=== PATIENT | female | born 1960 | race Caucasian/White ===

== ENCOUNTER 2024-12-06 13:26 | Emergency (ER) | payer BC ==
[~2024-12-06] VITALS: Ht 170.2 cm; Wt 92.1 kg
--- NOTE | 2024-12-06 13:42 | ERN ---
ED Note History of Present Illness Stated Complaint: MULTIPLE COMPLAINTS Chief Complaint: Other Problems Time Seen by MD: 13:38 Dictation: PATIENT IS A 64-YEAR-OLD FEMALE HERE COMING IN FROM A LOCAL URGENT CARE CENTER WITH MULTIPLE COMPLAINTS. SHE STATES THE ORIGINALLY SHE HAD A SAME LEVEL FALL BACKWARDS AND HIT HER HEAD TWO WEEKS AGO WAS SEEN AT [facility] IN [place] AND HAD A WORKUP AND WAS TOLD EVERYTHING WAS FINE. SHE LEFT POSTERIOR RIB PAIN WITH THE X-RAYS THAT WERE DONE AND THOSE WERE FINE TWO. SHE HAS ALREADY BEEN BACK TO THEM ONCE AND IT WAS MEDICALLY CLEARED. SHE WENT IN TODAY TO THE URGENT CARE BECAUSE SHE WAS HAVING WHAT SHE THOUGHT IS SWELLING OF HER NECK CONTINUED CHEST PAIN TO THE BACK AND STATES MY STOMACH AND GI SYSTEM ISN'T WORKING THE WAY IT SHOULD. SHE STATES SHE ATE THIS MORNING AND FELT LIKE SHE HAD TROUBLE GETTING THE FOOD DOWN. SHE SAYS SHE HAS HAD THIS TROUBLE IN THE PAST PRIOR TO THE FALL AND WHEN SHE WAS BACK HOME AT THE STATE WHERE [place]ID[place] DURING THE [place], THEY HAD NEVER BEEN ABLE FIND AN ETIOLOGY FOR THOSE PROBLEMS. FINALLY HER BLOOD PRESSURE IS 196/98 IN TRIAGE SHE STATES SHE TAKES TWO DIFFERENT MEDICATIONS HOWEVER CAN NOT REMEMBER IF THEY WERE TAKEN THIS MORNING. SHE STATES THEY DID NOT TELL HER ANYTHING AT THE URGENT CARE. Allergies: Coded Allergies: adhesive tape (Unverified Allergy, Unknown, 12/06/24) duloxetine (Unverified Allergy, Unknown, 12/06/24) gabapentin (Unverified Allergy, Unknown, 12/06/24) latex (Unverified Allergy, Unknown, 12/06/24) perflutren (Unverified Allergy, Unknown, 12/06/24) Home Meds Active Scripts Acetaminophen with Codeine (Acetaminophen-Cod #3 Tablet) 300 Mg-30 Mg Tablet, 1 TAB PO Q4H PRN for Moderate to severe pain, #15 TAB 0 Refills Prov:JESUS YIN PATTERN DESIGNER 12/06/24 Past Medical History History: Not Applicable RN Note Reviewed/Agreed w/PFSH: Yes Review of System Dictation CONSTITUTIONAL: NEGATIVE EXCEPT FOR HPI HEAD/FACE: NEGATIVE EXCEPT FOR HPI EENT: NEGATIVE EXCEPT FOR HPI RESPIRATORY: NEGATIVE EXCEPT FOR HPI GASTROINTESTINAL/ABDOMINAL: NEGATIVE EXCEPT FOR HPI GI ISSUES GENITOURINARY: NEGATIVE EXCEPT FOR HPI MUSCULOSKELETAL: NEGATIVE EXCEPT FOR HPI NECK SWELLING INTEGUMENTARY: NEGATIVE EXCEPT FOR HPI NEUROLOGICAL/PSYCH: NEGATIVE EXCEPT FOR HPI HEMATOLOGIC/LYMPHATIC: NEGATIVE EXCEPT FOR HPI ALL SYSTEMS NEGATIVE, EXCEPT NOTED ABOVE. 13 POINT REVIEW OF SYSTEMS ASSESSED AND ALL NEGATIVE EXCEPT FOR ABOVE. Initial Vital Sign VS Vital Signs Date Time Temp Pulse Resp B/P (MAP) Pulse Ox O2 Delivery O2 Flow Rate FiO2 12/06/24 13:32 97.0 82 16 196/98 Room Air 12/06/24 13:52 98 0 21 Physical Exam Dictation VITAL SIGNS REVIEWED GENERAL APPEARANCE: ALERT, ORIENTED X 3, NO ACUTE DISTRESS, WELL DEVELOPED, NOURISHED. HEAD AND FACE: NON-TRAUMATIC. EYES: PERRL, PINK CONJUNCTIVAS, EYELID NO TRAUMA, ANTERIOR CHAMBER WITH ARCUS SENILIS. EARS: PINNAS INTACT AND NO SIGNS OF TRAUMA OR ERYTHEMA EAR CANALS CLEAR AND NO DISCHARGE TM NO ERYTHEMA NOSE: NO DISCHARGE, NO BLEEDING. OROPHARYNX: MOUTH NORMAL, TONGUE PINK, PHARYNX CLEAR,NO ERYTHEMA, TONSILS NO EXUDATES, NO ABSCESSES NOTED, MUCOUS MEMBRANE MOIST NECK: SUPPLE, NON-TENDER, NO THYROMEGALY, NO MASSES, NO JVD, NO BRUITS BREAST:DEFERRED CHEST:NO TENDERNESS, NO CREPITUS, NO PARADOXICAL MOVEMENT, NO RETRACTIONS LUNGS:CLEAR, WELL-VENTILATED, SYMMETRIC, NO RALES, NO WHEEZING, NO RHONCHI, NO STRIDOR, GOOD BREATH SOUNDS BILATERALLY HEART: REGULAR RATE, REGULAR RHYTHM, NO MURMUR, NO GALLOPS VASCULAR: NO PERIPHERAL EDEMA, ABDOMEN: SOFT, POSITIVE BOWEL SOUNDS, NONDISTENDED, NO GUARDING, NONTENDER, NO REBOUND, NO MASSES NO HEPATOMEGALY, NO SPLENOMEGALY, NO FRAIRE'S SIGN, NO HERNIAS. NO FOCAL TENDER RECTAL: DEFERRED GENITAL: DEFERRED NEUROLOGICAL: NORMAL SPEECH, MOTOR FUNCTION INTACT, SENSORY FUNCTION INTACT MUSCULOSKELETAL: NECK NONTENDER, FULL RANGE OF MOTION, BACK NONTENDER, FULL RANGE OF MOTION, EXTREMITIES: NONTENDER, FULL RANGE OF MOTION SKIN: COLOR PINK, DRY, NO TURGOR, NO RASH, NO LACERATIONS, NO ABRASIONS, NO CONTUSIONS. LYMPHATIC: DEFERRED Results (Laboratory/Radiology) Laboratory/Radiology Laboratory Tests Test 12/06/24 14:00 White Blood Count 6.4 K/uL (4.8-10.8) Red Blood Count 4.29 MIL/uL (4.00-5.50) Hemoglobin 13.3 g/dL (12.0-16.0) Hematocrit 40.4 % (36-48) Mean Corpuscular Volume 94.2 fL (79-99) Mean Corpuscular Hemoglobin 31.0 pg (27.0-33.0) Mean Corpuscular Hemoglobin Concent 32.9 g/dL (32.0-36.0) Red Cell Distribution Width 13.0 % (11.0-15.5) Platelet Count 203 K/uL (130-400) Mean Platelet Volume 11.0 fL (7.5-10.5) H Immature Granulocyte % (Auto) 0.6 % (0-1) Neutrophils (%) (Auto) 62.1 % (40.0-77.0) Lymphocytes (%) (Auto) 23.0 % (21.0-51.0) Monocytes (%) (Auto) 9.9 % (3.0-13.0) Eosinophils (%) (Auto) 3.9 % (0.0-8.0) Basophils (%) (Auto) 0.5 % (0.0-5.0) Neutrophils # (Auto) 3.9 K/uL (1.8-7.7) Lymphocytes # (Auto) 1.5 K/uL (1.0-4.8) Monocytes # (Auto) 0.6 K/uL (0.1-1.0) Eosinophils # (Auto) 0.25 K/uL (0.00-0.70) Basophils # (Auto) 0.03 K/uL (0.00-0.20) Absolute Immature Granulocyte (auto 0.04 K/uL (0-1) Nucleated Red Blood Cells 0.0 % (0.0-0.19) Sodium Level 139 mmol/L (136-145) Potassium Level 4.1 mmol/L (3.5-5.1) Chloride Level 103 mmol/L (101-111) Carbon Dioxide Level 29 mmol/L (21-32) Blood Urea Nitrogen 15 mg/dL (7-18) Creatinine 0.8 mg/dL (0.5-1.0) Glomerular Filtration Rate Calc 83 mL/min (>90) Random Glucose 121 mg/dL (70-105) H Total Calcium 8.6 mg/dL (8.5-10.1) Total Bilirubin 0.6 mg/dL (0.2-1.0) Aspartate Amino Transf (AST/SGOT) 18 U/L (10-37) Alanine Aminotransferase (ALT/SGPT) 23 U/L (12-78) Alkaline Phosphatase 114 U/L (50-136) Troponin I High Sensitivity 6 ng/L (4-50) B-Type Natriuretic Peptide 103 pg/mL (0-100) H Total Protein 6.9 g/dL (6.0-8.3) Albumin 3.5 g/dL (3.5-5.0) Lipase 63 U/L (16-77) MINH WITH CONTRAST INDICATION: Bilateral proximal neck swelling after fall 2 weeks ago TECHNIQUE: 3D helical CT acquisition images were obtained from the level of the skull base to the thoracic inlet with 100 mL of Omnipaque 350 IV contrast and coronal and sagittal reformats. CT was performed with one or more of the following dose reduction techniques: Automated exposure control, adjustment of the mA and/or kV according to patient size, or use of iterative reconstruction technique. COMPARISON: None FINDINGS: Examination provided for interpretation at 8:20 PM on 12/06/2024. The visualized portions of the brain, skull base, orbits, and paranasal sinuses appear normal. Streak artifact from maxillary sinus and mandibular hardware. The visualized nasopharynx and nasal cavity appear normal. The oral cavity, oropharynx, and hypopharynx appear normal. The cervical esophagus and visualized portion of the thoracic esophagus appear normal. The larynx and visualized trachea appear normal. The extramucosal spaces of the neck appear normal. The parotid and submandibular glands appear normal. The thyroid gland appears normal. No cervical lymphadenopathy noted. The visualized osseous structures, vasculature, and soft tissues appear normal. The upper mediastinum and lung apices appear normal. IMPRESSION: No evidence for fracture or any other acute soft tissue neck abnormality. Labs Reviewed?: Yes EKG Comment: EKG SINUS RHYTHM/HEART RATE 69/LEFT ATRIAL ENLARGEMENT/NO ECTOPY ED Course ED Course Orders Procedure Category Date Status Time Clonidine Hcl 0.1 Mg PHA 12/06/24 Complete Tablet (Catapres 0. 14:00 Cbc With Differential LAB 12/06/24 Complete 13:38 Comprehensive LAB 12/06/24 Complete Metabolic Panel 13:38 Troponin I High LAB 12/06/24 Complete Sensitivity 13:38 12 Lead Ekg Tracing- EKG 12/06/24 Complete Technical 13:38 Chest 1vw RAD 12/06/24 Resulted 13:38 Lipase LAB 12/06/24 Complete 13:38 B-Type Natriuretic LAB 12/06/24 Complete Peptide 14:22 Ketorolac 60mg/2ml PHA 12/06/24 Complete (Toradol 60mg/2ml) 15:30 Ct Neck Soft Tiss CT 12/06/24 Resulted W/Contrast 16:42 Iohexol (Omnipaque) PHA 12/06/24 Complete 18:00 Current Medications Medications (Trade) Dose Ordered Sig/Omer Route PRN Reason Start Time Stop Time Status Last Admin Dose Admin Clonidine HCl (CATApres 0.1 mg TAB) 0.1 mg ONCE ONCE PO 12/06/24 14:00 12/06/24 14:01 DC 12/06/24 16:58 Iohexol (Omnipaque) 75 ml STK-MED ONCE IV 12/06/24 18:00 12/06/24 18:01 DC Ketorolac Tromethamine (toRADol 60MG/ 2ML) 60 mg ONCE ONCE IM 12/06/24 15:30 12/06/24 15:31 DC 12/06/24 15:49 Vital Signs Date Time Temp Pulse Resp B/P (MAP) Pulse Ox O2 Delivery O2 Flow Rate FiO2 12/06/24 19:34 97.0 75 16 142/81 98 Room Air* 0 12/06/24 17:16 97.0 69 18 173/94 96 Room Air* 0 12/06/24 16:58 69 169/72 12/06/24 15:45 97.0 75 18 156/98 96 Room Air* 0 12/06/24 14:45 97.0 75 18 154/84 96 Room Air* 0 12/06/24 13:52 75 18 169/88 98 Room Air* 0 12/06/24 13:32 97.0 82 16 196/98 Room Air PATIENT: MARGARITA ESCOTO MR#: [id number] : 1960 SEX: F AGE: 64 LOCATION: [facility] ORDER 42 STATUS: REG ER REPORT#: [id number] SERVICE 41 REASON: Bilateral proximal neck swelling status post fall two weeks ago back ORDERING PHYSICIAN: JESUS YIN PATTERN DESIGNER PROCEDURE: NKSOFTI W - CT NECK SOFT TISS W/CONTRAST CT NECK WITH CONTRAST INDICATION: Bilateral proximal neck swelling after fall 2 weeks ago TECHNIQUE: 3D helical CT acquisition images were obtained from the level of the skull base to the thoracic inlet with 100 mL of Omnipaque 350 IV contrast and coronal and sagittal reformats. CT was performed with one or more of the following dose reduction techniques: Automated exposure control, adjustment of the mA and/or kV according to patient size, or use of iterative reconstruction technique. COMPARISON: None FINDINGS: Examination provided for interpretation at 8:20 PM on 12/06/2024. The visualized portions of the brain, skull base, orbits, and paranasal sinuses appear normal. Streak artifact from maxillary sinus and mandibular hardware. The visualized nasopharynx and nasal cavity appear normal. The oral cavity, oropharynx, and hypopharynx appear normal. The cervical esophagus and visualized portion of the thoracic esophagus appear normal. The larynx and visualized trachea appear normal. The extramucosal spaces of the neck appear normal. The parotid and submandibular glands appear normal. The thyroid gland appears normal. No cervical lymphadenopathy noted. The visualized osseous structures, vasculature, and soft tissues appear normal. The upper mediastinum and lung apices appear normal. IMPRESSION: No evidence for fracture or any other acute soft tissue neck abnormality. 2054/patient states pain is 1/10. She is aware that CT, chest x-ray and labs are all negative follow up with her primary doctor to get him a list of the doctors on staff at [facility] Score Response (Comments) Value EKG: Repolarization changes 1 Risk Factors: 1-2 risk factors (+1) 1 Initial Troponin: Normal limit (0) 0 Total 2 Medical Decision Making MDM MDM: Differential diagnosis: Esophageal disruption/tracheal disruption/ pneumonia/bronchitis/AMI/chest wall contusion Rationale: Tests considered and ordered secondary to shared decision making include: EKG/labs/radiology Previous outside records reviewed: Old ER visits. Risk of complication and/or morbidity or mortality of patient management: None Medications-Per medication reconciliation Need for hospitalization: Patient does not meet criteria for hospitalization. No Need for emergency major/minor surgery: No There are no social concerns with this patient. Prescription drug management Tylenol with codeine Prescriptions will include symptomatic care Patient's prior external medical records from other ER visits were reviewed by me as indicated. Prior testing and results from previous visits were reviewed. Prior tests were taken into account with medical decision making and resource utilization, independent historian/historians were used to obtain complete medical history. I independently interpreted the test that were performed, results were reviewed by me and considered findings on radiology if ordered. Medical management and examination interpretation discussions were had by me with other qualified healthcare professionals as indicated for the patient's care. DX & DISP Disposition: Discharge Departure Impression: Primary Impression: Contusion of neck Additional Impressions: Contusion of left chest wall, Fall Condition: Stable Scripts Acetaminophen with Codeine (Acetaminophen-Cod #3 Tablet) 300 Mg-30 Mg Tablet 1 TAB PO Q4H PRN for Moderate to severe pain, #15 TAB 0 Refills Prov: JESUS YIN NP 12/06/24 Additional Instructions: Follow-up with primary care provider in 1 to 2 days. Take medications as directed here in the emergency room. Okay to continue home medications unless otherwise discussed during your visit in the emergency room today. Return to your nearest emergency room if symptoms worsen or if there is no improvement. Call 911 if you need immediate assistance. Take Tylenol or Motrin [id number] as needed and if no contraindications are present. Increase oral hydration. A wound culture or urine culture was ordered here in the emergency room department please follow-up with primary care provider and advise them to get repeat ports from our facility. If you had any Juan Antonio wrap/splints that were applied here, please do not remove them until you see your primary care or specialty. Diet and activity as tolerated, follow up with one of the doctors on the list of primary care physicians in next several days if needed. Time of Disposition: 20:58 I have reviewed the case, and I agree with, Diagnosis and Plan JESUS YIN NP Dec 06, 2024 13:42 PRICILA CONNELL DO Dec 07, 2024 12:11
--- NOTE | 2024-12-06 13:48 | EKG ---
[facility] Test Date: 2024-12-06 Test Time: 13:41:35 Pat Name: MARGARITA ESCOTO Department: ED Room: Gender: F [employer] Clippings: [id number] : 1960 Requested By: JESUS YIN Order Number: [id number] Reading MD: Sol Rosario Measurements Intervals [place] Rate: 69 P: 60 LA: 128 QRS: 24 QRSD: 70 T: 30 QT: 371 QTc: 399 Interpretive Statements Sinus rhythm Probable left atrial enlargement No previous ECG available for comparison Electronically Signed On 12-08-2024 08:39:40 TUB OPERATOR by Sol Rosario Please click the below link to view image of tracing.
[2024-12-06 14:11] LABS: BASOPHILS # (AUTO) 0.03 K/uL (0.00-0.20); BASOPHILS % (AUTO) 0.5 % (0.0-5.0); EOSINOPHILS # (AUTO) 0.25 K/uL (0.00-0.70); EOSINOPHILS % (AUTO) 3.9 % (0.0-8.0); HEMATOCRIT 40.4 % (36-48); IMMATURE GRANULOCYTE ABSOLUTE 0.04 K/uL (0-1); LYMPHOCYTES # (AUTO) 1.5 K/uL (1.0-4.8); MEAN CORPUSCULAR HGB CONC 32.9 g/dL (32.0-36.0); MEAN CORPUSCULAR VOLUME 94.2 fL (79-99); MONOCYTES # (AUTO) 0.6 K/uL (0.1-1.0); MONOCYTES % (AUTO) 9.9 % (3.0-13.0); NEUTROPHILS # (AUTO) 3.9 K/uL (1.8-7.7); NEUTROPHILS % (AUTO) 62.1 % (40.0-77.0); PLATELET COUNT (AUTO) 203 K/uL (130-400); RED BLOOD CELL COUNT(AUTO) 4.29 MIL/uL (4.00-5.50); WHITE BLOOD COUNT (AUTO) 6.4 K/uL (4.8-10.8)
[2024-12-06 14:18] LABS: CREATININE 0.8 mg/dL (0.5-1.0); POTASSIUM 4.1 mmol/L (3.5-5.1)
[2024-12-06 14:23] LABS: ALBUMIN 3.5 g/dL (3.5-5.0); BILIRUBIN,TOTAL 0.6 mg/dL (0.2-1.0); TOTAL PROTEIN, SERUM 6.9 g/dL (6.0-8.3)
--- NOTE | 2024-12-06 15:17 | HMCIMG ---
CHEST 1VW HISTORY: Chest pain COMPARISON: None FINDINGS: A frontal projection of the chest was obtained. No acute pulmonary infiltrates is seen. The heart is borderline enlarged. Prominent interstitial markings are seen. Degenerative changes are seen. No evidence of aortic calcification is seen. IMPRESSION: 1. No acute pulmonary infiltrate is seen.
[2024-12-06] MEDS: ketOROlac 60 MG VIAL (30MG/ML) IM ONE (15:49)
[2024-12-06] MEDS: cloNIDine HCL 0.1 MG TABLET PO ONE (16:58)
[2024-12-06] MEDS ORDERED: IOHEXOL-350 75 ML VIAL IV ONE (18:00)
[2024-12-06 19:34] VITALS: BP 142/81; PULSE 75; RESP 16; TEMP 97; O2SAT 98
--- NOTE | 2024-12-06 20:40 | HMCIMG ---
CT NECK WITH CONTRAST INDICATION: Bilateral proximal neck swelling after fall 2 weeks ago TECHNIQUE: 3D helical CT acquisition images were obtained from the level of the skull base to the thoracic inlet with 100 mL of Omnipaque 350 IV contrast and coronal and sagittal reformats. CT was performed with one or more of the following dose reduction techniques: Automated exposure control, adjustment of the mA and/or kV according to patient size, or use of iterative reconstruction technique. COMPARISON: None FINDINGS: Examination provided for interpretation at 8:20 PM on 12/06/2024. The visualized portions of the brain, skull base, orbits, and paranasal sinuses appear normal. Streak artifact from maxillary sinus and mandibular hardware. The visualized nasopharynx and nasal cavity appear normal. The oral cavity, oropharynx, and hypopharynx appear normal. The cervical esophagus and visualized portion of the thoracic esophagus appear normal. The larynx and visualized trachea appear normal. The extramucosal spaces of the neck appear normal. The parotid and submandibular glands appear normal. The thyroid gland appears normal. No cervical lymphadenopathy noted. The visualized osseous structures, vasculature, and soft tissues appear normal. The upper mediastinum and lung apices appear normal. IMPRESSION: No evidence for fracture or any other acute soft tissue neck abnormality.
[2024-12-06] MEDS ORDERED: ACET-2079 PO (20:59)
== END 2024-12-06 21:19 | disposition home or self-care (01) ==
LOC: EDH 13:26
DX: S10.93XA Contusion of unspecified part of neck, initial encounter (principal); S20.212A Contusion of left front wall of thorax, initial encounter; Z88.8 Allergy status to other drugs, medicaments and biological substances; Z79.899 Other long term (current) drug therapy; W18.39XA Other fall on same level, initial encounter; Y93.89 Activity, other specified; Y92.89 Other specified places as the place of occurrence of the external cause; Y99.8 Other external cause status
CPT/HCPCS: 99284; 70491; 71045; 84484; 80053; 83880; 83690; 85025; 36415; 93005; 96372; J1885; Q9967